=== PATIENT | female | born 1975 | race Caucasian/White ===

== ENCOUNTER → 2016-06-02 | Outpatient (CLI) | payer OTHER ==
--- NOTE | 2016-06-02 10:16 | US ---
EXAMINATION TYPE: US gallbladder DATE OF EXAM: 06/02/2016 9:20 AM COMPARISON: No previous CLINICAL HISTORY: Intermittent RUQ pain and nausea x 4 days, acid reflux. EXAM MEASUREMENTS: Liver Length: 15.9cm Gallbladder Wall: 0.2cm CBD: 0.2cm Right Kidney: 9.3 x 3.6 x 4.5cm TECHNOLOGIST IMPRESSION: Pancreas: wnl Liver: wnl Gallbladder: wnl Evidence for sonographic Feliz's sign: no CBD: wnl Right Kidney: wnl IMPRESSION: No gallstones or ultrasound evidence for acute cholecystitis. Normal Values: Liver Length: < 16cm wnl, 17-18cm upper limits, >18cm enlarged Renal Length = 9 - 12cm GB Wall: < 0.3cm CBD: < 0.6cm or < 1.0cm post cholecystectomy
== END | disposition home or self-care (01) ==
LOC: RADUSWWP 09:01
PROVIDERS: ATTEND Internal Medicine
DX: R10.11 Right upper quadrant pain (principal)
CPT/HCPCS: 76705

== ENCOUNTER → 2016-06-05 | Outpatient (CLI) | payer OTHER ==
--- NOTE | 2016-06-05 09:51 | NM ---
EXAMINATION TYPE: NM hepatobiliary w EF DATE OF EXAM: 06/05/2016 9:06 AM COMPARISON: Ultrasound gallbladder 02 June 2016 HISTORY: R10.11 right upper quadrant pain TECHNIQUE: After the intravenous administration of 5.4 mCi Tc 99m Mebrofenin hepatobiliary scintigrap hy is performed. Immediate images post injection. FINDINGS: There is satisfactory initial accumulation of tracer by the liver. The gallbladder is visualized wit hin 14 minutes. The small bowel activity is noted within 44 minutes. At one hour 8 ounces of oral e nsure plus is given to mimic CCK and gallbladder ejection fraction is calculated at 68 %, in the norm al range. Therefore there is no scintigraphic evidence of cystic or common bile duct obstruction to suggest acute cholecystitis or gallbladder dyskinesia. Patient experienced nausea with the Ensure adm inistration. IMPRESSION: Exam is within normal limits.
== END | disposition home or self-care (01) ==
LOC: RADNMMAIN 06:57
PROVIDERS: ATTEND Family Medicine
DX: R10.11 Right upper quadrant pain (principal)
CPT/HCPCS: 78226; A9537

== ENCOUNTER 2016-06-10 11:43 | Day surgery (SDC) | payer OTHER ==
[2016-06-08 12:14] VITALS: BMI 22.0
[~2016-06-10 11:43] MED LIST: LACTATED RINGERS 1,000 ML IV SCH; LIDOCAINE 1% 20 ML VIAL (10MG/ML) FOR IV START INTRADERMA PRN
[2016-06-10 12:01] VITALS: TEMP 98.2
[2016-06-10] MEDS ORDERED: LIDOCAINE 1% 20 ML VIAL (10MG/ML) FOR IV START INTRADERMA ONE (12:01)
[2016-06-10] MEDS ORDERED: LACTATED RINGERS 1,000 ML IV ONE (12:01)
[2016-06-10] MEDS ORDERED: PROPOFOL 10 MG/ML 20 ML VIAL IV ONE (12:16)
[2016-06-10] MEDS ORDERED: MIDAZOLAM 2 MG/2 ML VIAL ONE (12:16)
[2016-06-10] MEDS ORDERED: LIDOCAINE 1% INJ 10MG/ML (20 ML MDV) ONE (12:16)
--- NOTE | 2016-06-10 12:37 | P.PCN ---
Date of Procedure: 06/10/16 Procedure(s) Performed: Brief history: Patient is a pleasant 41-year-old white female, scheduled for an elective upper endoscopy as well as colonoscopy as a part of evaluation of ascending history of gastroesophageal reflux symptoms and intermittent right-sided abdominal pain for the last few months duration. Procedure performed: Esophagogastroduodenoscopy with biopsy Colonoscopy Preoperative diagnosis: Good Right-sided abdominal pain Anesthesia: MAC Procedure: After informed consent was obtained from the patient was brought into the endoscopy unit and IV conscious sedation was administered by anesthesia under continuous monitoring. Initially upper endoscopy was done. The Olympus GF 160 video endoscope was inserted inserted into the mouth and esophagus intubated without any difficulty and was gradually advanced into the stomach and duodenum and carefully examined. The bulb and second part of the duodenum appeared normal. The scope was then withdrawn into the stomach adequately insufflated with air and upon careful examination the antrum had mild gastritis and biopsies were done from this area. The body, cardia and fundus appeared normal. The scope was then withdrawn into the esophagus. Small hiatal hernia noted. The GE junction was located at 36 cm to the incisors. It appeared regular with no erythema erosions or ulcerations. Rest of the esophagus appeared normal. Patient tolerated the procedure well. At this time the patient continued to remain sedation. Initial digital rectal examination was normal. Olympus CF 160 video colonoscope was then inserted into the rectum and gradually advanced to the cecum without any difficulty. Careful examination was performed as the scope was gradually being withdrawn. The prep was excellent. terminal ileum was intubated and 20 cm visualized and appeared normal. The cecum, ascending colon, transverse colon, descending colon, sigmoid colon and rectum appeared normal. Retroflexion was performed in the rectum and no lesions were noted. Patient tolerated the procedure well. Impression: 1.Upper endoscopy revealed mild antral gastritis and small hiatal hernia but no evidence of esophagitis or Coyne's esophagus. 2.Colonoscopy revealed normal-appearing colon from rectum to cecum as well as terminal ileum with no evidence of colitis or colorectal neoplasia Recommendations: Findings of this examination were discussed with the patient as well as her family. She was advised to follow with the biopsy results. She will continue with Protonix 40 mg daily and follow antireflux measures.
[2016-06-10 12:49] VITALS: RESP 16
[2016-06-10 13:28] VITALS: BP 124/87; PULSE 76
== END 2016-06-10 13:33 | disposition home or self-care (01) ==
LOC: ORWHC2ENDO 11:43
PROVIDERS: ATTEND Internal Medicine Gastroenterology
DX: K20.0 Eosinophilic esophagitis (principal); K21.0 Gastro-esophageal reflux disease with esophagitis; K44.9 Diaphragmatic hernia without obstruction or gangrene; R10.9 Unspecified abdominal pain; Z79.02 Long term (current) use of antithrombotics/antiplatelets; Z79.899 Other long term (current) drug therapy
CPT/HCPCS: 81025; 88305; 88342; 45378; 43239; J2250; J2001; J2704; 99153

== ENCOUNTER → 2016-10-21 | Outpatient (CLI) | payer OTHER ==
[2016-10-26 20:37] LABS: Beef IgG 25.3 mcg/mL (< 2.0); Chicken Meat IgG 10.1 mcg/mL (< 2.0); Corn IgG 14.4 mcg/mL (< 2.0); Peanut IgG 15.9 mcg/mL (< 2.0); Pork IgG 10.3 mcg/mL (< 2.0); Potato IgG 9.6 mcg/mL (< 2.0); Soybean IgG 8.7 mcg/mL (< 2.0); Tomato IgG 17.1 mcg/mL (< 2.0)
== END | disposition home or self-care (01) ==
LOC: LABWHC1 11:58
PROVIDERS: ATTEND Otolaryngology
DX: J30.89 Other allergic rhinitis (principal)
CPT/HCPCS: 36415; 86001

== ENCOUNTER → 2016-11-11 | Outpatient (CLI) | payer OTHER ==
[2016-11-12 10:24] LABS: Mis test requested (Blood) Bean Sprouts IgG
[2016-11-12 13:29] LABS: Hazelnut IgE <0.35 kU/L (<0.35); Hazelnut IgE Class CLASS 0
[2016-11-12 13:30] LABS: Kiwi IgE <0.35 kU/L (<0.35); Kiwi IgE Class CLASS 0
[2016-11-12 13:31] LABS: Avocado Class CLASS 0
[2016-11-12 13:32] LABS: Banana IgE Class CLASS 0
[2016-11-13 16:14] LABS: Tea IgG 2.9 mcg/mL (<2.0)
[2016-11-16 13:52] LABS: Banana IgG 17.6 mcg/mL (< 2.0); Celery IgG 8.5 mcg/mL (< 2.0); Chocolate IgG 17.9 mcg/mL (< 2.0); Crab IgG 9.1 mcg/mL (< 2.0); Orange IgG 7.5 mcg/mL (< 2.0)
[2016-11-16 13:53] LABS: Coffee IgG 10.5 mcg/mL (< 2.0); Oat IgG 25.9 mcg/mL (< 2.0); Rice IgG 23.8 mcg/mL (< 2.0); Walnut IgG 8.8 mcg/mL (< 2.0)
[2016-11-18 14:19] LABS: Mis test requested (Blood) Lobster IgG
[2016-11-18 14:30] LABS: Mis test requested (Blood) Onion IgG
[2016-11-18 14:33] LABS: Mis test requested (Blood) Strawberry IgG
[2016-11-18 14:36] LABS: Mis test requested (Blood) Lettuce IgG
[2016-11-18 14:38] LABS: Mis test requested (Blood) Shrimp IgG
[2016-11-18 14:40] LABS: Mis test requested (Blood) Salmon IgG
== END ==
LOC: LABWHC1 11:50
PROVIDERS: ATTEND Otolaryngology
DX: J30.89 Other allergic rhinitis (principal)
CPT/HCPCS: 36415; 86001; 86003

== ENCOUNTER → 2016-12-15 | Outpatient (CLI) | payer OTHER ==
--- NOTE | 2016-12-16 07:46 | MM ---
Reason for exam: screening (asymptomatic). Last mammogram was performed 1 year and 4 months ago. History: Patient had first child at age 33. Physical Findings: A clinical breast exam by your physician is recommended on an annual basis and results should be correlated with mammographic findings. MG Screening Mammo w CAD Bilateral CC and MLO view(s) were taken. Prior study comparison: August 06, 2015, left breast MG work up mamm w CAD LT. August 01, 2015, bilateral MG screening mammo w CAD. The breast tissue is heterogeneously dense. This may lower the sensitivity of mammography. No significant changes when compared with prior studies. ASSESSMENT: Benign, BI-RAD 2 RECOMMENDATION: Routine screening mammogram of both breasts in 1 year.
== END | disposition home or self-care (01) ==
LOC: RADMAMWWP 11:12
PROVIDERS: ATTEND Family Medicine
DX: Z12.31 Encounter for screening mammogram for malignant neoplasm of breast (principal)

== ENCOUNTER → 2018-05-12 | Outpatient (CLI) | payer OTHER ==
--- NOTE | 2018-05-13 11:17 | MM ---
Reason for exam: screening (asymptomatic). Last mammogram was performed 1 year and 5 months ago. History: Patient had first child at age 33. Physical Findings: A clinical breast exam by your physician is recommended on an annual basis and results should be correlated with mammographic findings. MG Screening Mammo w CAD Bilateral CC and MLO view(s) were taken. Prior study comparison: December 15, 2016, bilateral MG screening mammo w CAD. August 06, 2015, left breast MG work up mamm w CAD LT. The breast tissue is heterogeneously dense. This may lower the sensitivity of mammography. There is no discrete abnormality. No significant changes when compared with prior studies. ASSESSMENT: Negative, BI-RAD 1 RECOMMENDATION: Routine screening mammogram of both breasts in 1 year.
== END | disposition home or self-care (01) ==
LOC: RADMAMWWP 11:05
PROVIDERS: ATTEND Family Medicine
DX: Z12.31 Encounter for screening mammogram for malignant neoplasm of breast (principal)
CPT/HCPCS: 77067

== ENCOUNTER → 2020-01-24 | Outpatient (CLI) | payer OTHER ==
[2020-01-24 15:22] LABS: HCT 42.9 % (34.0-46.0); HGB 13.7 gm/dL (11.4-16.0); MCHC 31.9 g/dL (31.0-37.0); MCV 90.9 fL (80.0-100.0); Mean Platelet Volume 8.8; Platelet Count 193 k/uL (150-450); RBC 4.72 m/uL (3.80-5.40); RDW 12.6 % (11.5-15.5); WBC 6.4 k/uL (3.8-10.6)
[2020-01-24 19:17] LABS: Thyroid Peroxidase Antibodies 40.1 U/mL (0.0-60.0)
[2020-01-24 20:22] LABS: African American GFR (CKD) 103.9 (60.0-200.0); Albumin 4.2 g/dL (3.80-4.90); Albumin/Globulin Ratio 1.68 (1.60-3.17); Anion Gap 8.6 mmol/L (4.00-12.00); BUN/Creat Ratio 13.75 Ratio (12.00-20.00); Calcium 9.2 mg/dL (8.7-10.3); Carbon Dioxide 24.4 mmol/L (21.6-31.8); Globulin 2.5 g/dL (1.6-3.3); Non-African American GFR(CKD) 89.7 (60.0-200.0); Total Bilirubin 0.3 mg/dL (0.3-1.2); Total Protein 6.7 g/dL (6.2-8.2)
[2020-01-24 20:30] LABS: Prolactin 10.5 ng/mL (2.8-29.2)
[2020-01-24 20:31] LABS: Follicle Stimulating Hormone 11.7 mIU/mL; T4, Free (Free Thyroxine) 0.9 ng/dL (0.80-1.80)
[2020-01-24 22:26] LABS: ACTH 59.1 pg/mL (0.00-45.99)
== END | disposition home or self-care (01) ==
LOC: LABWHC1 12:29
PROVIDERS: ATTEND Internal Medicine Endocrinology, Diabetes & Metabolism
DX: R53.83 Other fatigue (principal)
CPT/HCPCS: 36415; 80053; 82024; 82533; 82607; 83001; 84146; 84439; 84443; 84481; 85027; 86376

== ENCOUNTER → 2020-02-07 | Outpatient (CLI) | payer OTHER ==
[~2020-02-07] MED LIST changes: +COSYNTROPIN 0.25 MG VIAL IVP ONE; -LACTATED RINGERS 1,000 ML IV SCH; -LIDOCAINE 1% 20 ML VIAL (10MG/ML) FOR IV START INTRADERMA PRN; +SODIUM CHLORIDE 0.9% 500 ML 500 ML in EMPTY BAG 1 BAG IV PRN
[2020-02-07 09:08] VITALS: BP 135/91; PULSE 92; RESP 16; TEMP 98.4
== END | disposition home or self-care (01) ==
LOC: PROCWHC3 08:47
PROVIDERS: ATTEND Internal Medicine Endocrinology, Diabetes & Metabolism
DX: R53.83 Other fatigue (principal)
CPT/HCPCS: 82533; 82024; 96374; J0834

== ENCOUNTER → 2020-02-28 | Outpatient (CLI) | payer OTHER ==
--- NOTE | 2020-02-29 08:22 | MM ---
Reason for exam: screening (asymptomatic). Last mammogram was performed 1 year and 10 months ago. History: Patient had first child at age 33. Taking other hormone. Physical Findings: A clinical breast exam by your physician is recommended on an annual basis and results should be correlated with mammographic findings. MG 3D Screening Mammo W/Cad Bilateral CC, MLO, and XCCL view(s) were taken. Prior study comparison: May 12, 2018, bilateral MG screening mammo w CAD. December 15, 2016, bilateral MG screening mammo w CAD. The breast tissue is heterogeneously dense. This may lower the sensitivity of mammography. There is no discrete abnormality. ASSESSMENT: Negative, BI-RAD 1 RECOMMENDATION: Routine screening mammogram of both breasts in 1 year.
== END | disposition home or self-care (01) ==
LOC: RADMAMWWP 09:17
PROVIDERS: ATTEND Family Medicine
DX: Z12.31 Encounter for screening mammogram for malignant neoplasm of breast (principal)
CPT/HCPCS: 77063; 77067

== ENCOUNTER → 2020-04-22 | Outpatient (CLI) | payer OTHER | END | disposition home or self-care (01) | LOC: LABWHC1 08:08 | PROVIDERS: ATTEND Internal Medicine Endocrinology, Diabetes & Metabolism | DX: E27.1 Primary adrenocortical insufficiency (principal) | CPT/HCPCS: 36415; 82024; 82533 ==

== ENCOUNTER → 2020-05-16 | Outpatient (CLI) | payer OTHER ==
[2020-05-16 15:15] LABS: C Reactive Protein, High Sens 0.77 mg/L (0.000-3.000)
[2020-05-16 15:45] LABS: Anti-Smith Ab Interp NEGATIVE (NEGATIVE); Cyclic Citrull Pep IgG Unit <0.5 U/mL; Cyclic Citrullinated Pep IgG NEGATIVE (NEGATIVE); DNA Double-Stranded NEGATIVE (NEGATIVE)
[2020-05-16 15:48] LABS: Hepatitis B Core IgM Non-Reactive (Non-Reactive); Hepatitis B Surface AB- Quant 3.5 mIU/mL; Hepatitis B Surface Antibody Non-Reactive (Non-Reactive); Hepatitis B Surface Antigen Non-Reactive (Non-Reactive); Hepatitis C IgG Antibody Non-Reactive (Non-Reactive)
== END | disposition home or self-care (01) ==
LOC: LABWHC1 07:49
PROVIDERS: ATTEND Internal Medicine Rheumatology
DX: M19.90 Unspecified osteoarthritis, unspecified site (principal)
CPT/HCPCS: 36415; 82550; 82784; 85652; 86141; 86160; 86200; 86225; 86235; 86480; 86704; 86705; 86706; 86803; 86812; 87340

== ENCOUNTER → 2020-07-22 | Outpatient (CLI) | payer OTHER | END | disposition home or self-care (01) | LOC: LABWHC1 10:29 | PROVIDERS: ATTEND Internal Medicine Endocrinology, Diabetes & Metabolism | DX: E27.1 Primary adrenocortical insufficiency (principal) | CPT/HCPCS: 36415; 82024; 82533 ==

== ENCOUNTER → 2020-08-06 | Outpatient (CLI) | payer OTHER ==
[2020-08-06 16:16] LABS: Basophils % (A) 0 %; Eosinophils # (A) 0.2 k/uL (0-0.7); Eosinophils % (A) 4 %; HCT 41.9 % (34.0-46.0); HGB 13.9 gm/dL (11.4-16.0); Lymphocytes # (A) 1.4 k/uL (1.0-4.8); Lymphocytes % (A) 23 %; MCHC 33.3 g/dL (31.0-37.0); MCV 90.1 fL (80.0-100.0); Mean Platelet Volume 9.2; Monocytes # (A) 0.2 k/uL (0-1.0); Monocytes % (A) 3 %; Neutrophils # (A) 4.2 k/uL (1.3-7.7); Neutrophils % (A) 69 %; Platelet Count 191 k/uL (150-450); RBC 4.65 m/uL (3.80-5.40); RDW 12.8 % (11.5-15.5); WBC 6.1 k/uL (3.8-10.6)
[2020-08-06 16:43] LABS: ALT 12 U/L (4-34); AST 27 U/L (14-36); African American GFR (CKD) >90 (>60 ml/min/1.73 sqM); Albumin 4.7 g/dL (3.5-5.0); Albumin/Globulin Ratio 1.5; Alkaline Phosphatase 67 U/L (38-126); Anion Gap 5 mmol/L; Blood Urea Nitrogen 12 mg/dL (7-17); Calcium 9.6 mg/dL (8.4-10.2); Carbon Dioxide 28 mmol/L (22-30); Chloride 102 mmol/L (98-107); Globulin 3.1 g/dL; Glucose 82 mg/dL (74-99); Non-African American GFR(CKD) >90 (>60 ml/min/1.73 sqM); Potassium 4.2 mmol/L (3.5-5.1); Sodium 135 mmol/L (137-145); Total Bilirubin 0.6 mg/dL (0.2-1.3); Total Protein 7.8 g/dL (6.3-8.2)
== END | disposition home or self-care (01) ==
LOC: LABWHC1 15:54
PROVIDERS: ATTEND Nurse Practitioner Adult Health
DX: R07.9 Chest pain, unspecified (principal)
CPT/HCPCS: 36415; 80053; 84484; 85025; 85379

== ENCOUNTER 2020-08-07 15:52 | Inpatient (IN) | payer OTHER ==
[2020-08-07] MEDS ORDERED: LIDOCAINE 1% INJ 10MG/ML (20 ML MDV) SQ ONE (15:58)
[2020-08-07] MEDS ORDERED: SODIUM CHLORIDE 0.9% 500 ML 500 ML IV ONE (16:12)
--- NOTE | 2020-08-07 16:24 | ED ---
General Adult HPI - General Chief complaint: Shortness of Breath Stated complaint: Air in lungs Time Seen by Provider: 08/07/20 15:56 Source: patient, RN notes reviewed, old records reviewed Mode of arrival: ambulatory Limitations: no limitations - History of Present Illness Initial comments: 45-year-old female for evaluation of right-sided chest pain and dyspnea. Patient had been contacted by her primary care physician with an abnormal outpatient x-ray and concern for pneumothorax. Patient had been sent for outpatient CT which confirmed a pneumothorax. She was sent to the emergency department for evaluation and treatment. Patient states her symptoms have been present for approximate 5 days including dyspnea which is worse while lying on the right, and right-sided chest pain. She is otherwise healthy. She had a minor trauma but no chest trauma in recent history. No fever or chills. No cough. Patient is otherwise quite healthy. Nonsmoker. - Related Data Home Medications Medication Instructions Recorded Confirmed Allergy Shots Unk 1 applic IM Q14D 06/08/16 06/08/16 Cetirizine HCl [Zyrtec] 10 mg PO DAILY 06/08/16 02/07/20 Famotidine 40 mg PO BID 06/08/16 02/07/20 Pantoprazole [Protonix] 40 mg PO QAM 06/08/16 02/07/20 Allergies Allergy/AdvReac Type Severity Reaction Status Date / Time Beef Containing Products Allergy Intermediate Sinus Verified 08/07/20 16:02 [Beef] problems egg Allergy Intermediate Phlegm Verified 08/07/20 16:02 production, sinus problems milk Allergy Intermediate Phlegm Verified 08/07/20 16:02 production, sinus problems Review of Systems ROS Statement: Those systems with pertinent positive or pertinent negative responses have been documented in the HPI. ROS Other: All systems not noted in ROS Statement are negative. Past Medical History Additional Past Medical History / Comment(s): pneumothorax 07/2020, hypoglycemia, History of Any Multi-Drug Resistant Organisms: None Reported Additional Past Surgical History / Comment(s): sinus, Past Psychological History: No Psychological Hx Reported Smoking Status: Never smoker Past Alcohol Use History: None Reported Past Drug Use History: None Reported General Exam Limitations: no limitations General appearance: alert, in no apparent distress Head exam: Present: atraumatic, normocephalic Eye exam: Present: normal appearance, PERRL ENT exam: Present: normal exam Neck exam: Present: normal inspection, full ROM. Absent: tenderness, meningismus Respiratory exam: Present: decreased breath sounds (On the right). Absent: respiratory distress Cardiovascular Exam: Present: regular rate, normal rhythm GI/Abdominal exam: Present: soft. Absent: distended, tenderness Extremities exam: Present: normal inspection, normal capillary refill. Absent: pedal edema Neurological exam: Present: alert, oriented X3, CN II-XII intact. Absent: motor sensory deficit Psychiatric exam: Present: anxious Skin exam: Present: warm, dry, intact. Absent: cyanosis, diaphoretic Course Vital Signs 08/07/20 08/07/20 08/07/20 15:58 16:22 16:48 Temperature 98.0 F Pulse Rate 74 70 72 Respiratory 18 18 18 Rate Blood Pressure 158/97 160/104 138/90 O2 Sat by Pulse 100 100 100 Oximetry 08/07/20 08/07/20 08/07/20 17:04 17:09 17:26 Temperature Pulse Rate 70 80 70 Respiratory 18 14 16 Rate Blood Pressure 170/114 118/99 138/88 O2 Sat by Pulse 100 100 Oximetry 08/07/20 18:04 Temperature Pulse Rate 90 Respiratory 18 Rate Blood Pressure 124/101 O2 Sat by Pulse 100 Oximetry - Reevaluation(s) Reevaluation #1: 08/07/20 16:30 I did discuss case with Dr. Paradise chau for pulmonology, will evaluate the patient in consultation. EKG Findings - EKG Comments: EKG Findings:: EKG: Sinus rhythm rate of 71 CT interval 158, QRS duration 78, QTC 395, no ST segment elevation Procedures - Chest Tube Insertion Consent Obtained: written consent Side of Procedure: right Indication: Pneumothorax Placed on monitor/pulse oximetry: Yes Site Prep: Chloroprep Local Anesthesia: Lidocaine 1% Amount (mLs): 5 Insertion Site: Other (Mid clavicular, second intercostal space) Scalpel: #11 Open into Pleural Space Using: Trocar Tube Size (Cymro): Other (11) Returns: Air Sutured in Place: No (Self-adhesive dressing, thoravent) Attached to Suction: Yes Type of Suction: Pleuravac Repeat X-ray Results: Lung Inflated Patient Tolerated Procedure: well Medical Decision Making - Medical Decision Making 45-year-old female with spontaneous right-sided pneumothorax between 40 and 50% with radiographic evidence of right to left shift. Patient is hemodynamically stable. I discussed case with pulmonology, Dr. Ghotra. For event is placed in the emergency department. Patient tolerates procedure well. Repeat chest x-ray shows trace pneumothorax with no other acute findings. Patient will be admitted, repeat chest x-ray will be obtained tomorrow morning. Case discussed with Dr. Nunez who will admit with pulmonology on consult. - Lab Data Result diagrams: 08/07/20 16:19 08/07/20 16:19 Lab Results 08/07/20 08/07/20 08/07/20 Range/Units 16:19 16:19 16:19 WBC 5.7 (3.8-10.6) k/uL RBC 4.89 (3.80-5.40) m/uL Hgb 15.0 (11.4-16.0) gm/dL Hct 44.1 (34.0-46.0) % MCV 90.2 (80.0-100.0) fL MCH 30.6 (25.0-35.0) pg MCHC 33.9 (31.0-37.0) g/dL RDW 12.8 (11.5-15.5) % Plt Count 210 (150-450) k/uL MPV 10.0 Neutrophils % 62 % Lymphocytes % 27 % Monocytes % 4 % Eosinophils % 5 % Basophils % 1 % Neutrophils # 3.5 (1.3-7.7) k/uL Lymphocytes # 1.6 (1.0-4.8) k/uL Monocytes # 0.2 (0-1.0) k/uL Eosinophils # 0.3 (0-0.7) k/uL Basophils # 0.0 (0-0.2) k/uL PT 9.9 (9.0-12.0) sec INR 0.9 (<1.2) APTT 23.9 (22.0-30.0) sec Sodium 139 (137-145) mmol/L Potassium 4.1 (3.5-5.1) mmol/L Chloride 102 (98-107) mmol/L Carbon Dioxide 27 (22-30) mmol/L Anion Gap 10 mmol/L BUN 15 (7-17) mg/dL Creatinine 0.70 (0.52-1.04) mg/dL Est GFR (CKD-EPI)AfAm >90 (>60 ml/min/1.73 sqM) Est GFR (CKD-EPI)NonAf >90 (>60 ml/min/1.73 sqM) Glucose 85 (74-99) mg/dL Calcium 9.4 (8.4-10.2) mg/dL Total Bilirubin 0.3 (0.2-1.3) mg/dL AST 28 (14-36) U/L ALT 13 (4-34) U/L Alkaline Phosphatase 70 (38-126) U/L Total Protein 8.2 (6.3-8.2) g/dL Albumin 4.9 (3.5-5.0) g/dL Critical Care Time Critical Care Time: Yes Total Critical Care Time: 35 Disposition Clinical Impression: Spontaneous pneumothorax Disposition: ADMITTED IP TO THIS [facility] Condition: Stable Is patient prescribed a controlled substance at d/c from ED?: No Referrals: Bryon Ye MD [Primary Care Provider] - 1-2 days Decision to Admit Reason: Admit from EC Decision Date: 08/07/20 Decision Time: 17:34
[2020-08-07] MEDS ORDERED: LORazepam 2 MG/ML INJ IV STA (16:28)
[2020-08-07 16:31] LABS: Basophils % (A) 1 %; Eosinophils # (A) 0.3 k/uL (0-0.7); Eosinophils % (A) 5 %; HCT 44.1 % (34.0-46.0); Lymphocytes # (A) 1.6 k/uL (1.0-4.8); Lymphocytes % (A) 27 %; MCH 30.6 pg (25.0-35.0); MCHC 33.9 g/dL (31.0-37.0); MCV 90.2 fL (80.0-100.0); Monocytes # (A) 0.2 k/uL (0-1.0); Monocytes % (A) 4 %; Neutrophils # (A) 3.5 k/uL (1.3-7.7); Neutrophils % (A) 62 %; Platelet Count 210 k/uL (150-450); RBC 4.89 m/uL (3.80-5.40); RDW 12.8 % (11.5-15.5); WBC 5.7 k/uL (3.8-10.6)
[2020-08-07 16:40] LABS: ALT 13 U/L (4-34); AST 28 U/L (14-36); African American GFR (CKD) >90 (>60 ml/min/1.73 sqM); Albumin 4.9 g/dL (3.5-5.0); Alkaline Phosphatase 70 U/L (38-126); Anion Gap 10 mmol/L; Blood Urea Nitrogen 15 mg/dL (7-17); Calcium 9.4 mg/dL (8.4-10.2); Carbon Dioxide 27 mmol/L (22-30); Chloride 102 mmol/L (98-107); Glucose 85 mg/dL (74-99); Non-African American GFR(CKD) >90 (>60 ml/min/1.73 sqM); Potassium 4.1 mmol/L (3.5-5.1); Sodium 139 mmol/L (137-145); Total Bilirubin 0.3 mg/dL (0.2-1.3); Total Protein 8.2 g/dL (6.3-8.2)
[2020-08-07 16:41] LABS: INR 0.9 (<1.2); Partial Thromboplastin Time 23.9 sec (22.0-30.0); Prothrombin Time 9.9 sec (9.0-12.0)
[2020-08-07] MEDS ORDERED: HYDROmorphone 0.5 MG/0.5 ML SYRINGE IVP STA (16:54)
[2020-08-07] MEDS ORDERED: KETOROLAC 15 MG/ML 1 ML VIAL IVP STA (17:01)
[2020-08-07] MEDS ORDERED: KETOROLAC 15 MG/ML 1 ML VIAL ONE (17:02)
--- NOTE | 2020-08-07 17:56 | XR ---
EXAMINATION TYPE: XR chest 1V portable DATE OF EXAM: 08/07/2020 COMPARISON: Chest CT scan today HISTORY: Chest tube TECHNIQUE: Single view FINDINGS: There is chest tube over the right upper lobe anteriorly. I see no definite pneumothorax. T rachea is midline. Heart and mediastinum are normal. There are chest leads. There is no pleural effus ion. There are no hilar masses. IMPRESSION: No cardiopulmonary disease. There is apparent clearing of the small right pneumothorax co mpared to CT scan 2 hours ago.
[2020-08-07 18:05] VITALS: RESP 18
[2020-08-07] MEDS ORDERED: KETOROLAC 15 MG/ML 1 ML VIAL IVP PRN (18:12)
[2020-08-07] MEDS ORDERED: HYDROmorphone 0.5 MG/0.5 ML SYRINGE IVP PRN (18:12)
[2020-08-07] MEDS ORDERED: NALOXONE 0.4 MG/ML 1 ML VIAL IV PRN (18:12)
[2020-08-07] MEDS: SODIUM CHLORIDE 0.9% 1,000 ML IV SCH (18:37)
--- NOTE | 2020-08-08 08:29 | XR ---
EXAMINATION TYPE: XR chest 2V DATE OF EXAM: 08/08/2020 COMPARISON: 08/07/2020 TECHNIQUE: PA and lateral views submitted. HISTORY: Follow-up pneumothorax FINDINGS: Chest catheter noted. Persistent less than 5% right apical tiny pneumothorax. No mediastinal deviatio n. Left lung clear. No pleural effusion. No interstitial edema. IMPRESSION: 1. Less than 5% right apical pneumothorax
[2020-08-08] MEDS ORDERED: PANTOPRAZOLE 40 MG TABLET PO PRN (10:22)
[2020-08-08] MEDS: ACETAMINOPHEN TAB 325 MG TAB PO PRN ×2 (12:48→19:55)
--- NOTE | 2020-08-08 14:40 | P.CNPUL ---
History of Present Illness Consult date: 08/08/20 Requesting physician: Markell Nunez Reason for consult: dyspnea, chest pain, pneumothorax, abnormal CXR/CT Chief complaint: Chest pain and shortness of breath. History of present illness: 45-year-old female, who presents to the emergency department, on August 07, with complaints of right-sided chest pain and shortness of breath. She apparently was contacted by her primary care physician with an abnormal outpatient x-ray, with concerns for pneumothorax on the right side. Computed tomography scan did reveal a substantial pneumothorax on the right side, and ER physician placed a Thora-vent. The patient is currently inpatient. She is feeling better other than for some pain at the site of the catheter. The patient has no prior history of pneumothorax. She denies any trauma. She started noticing pulmonary complaints over the previous weekend. By Wednesday, her symptoms had progressed, and she thought she should get checked out. She saw her primary care provider, who ordered blood work and a chest x-ray. She apparently was called and told to come to the emergency room for a computed tomography scan. I did speak to the ER physician yesterday. Currently, she is resting comfortably. She is not on any nasal O2. The patient still has a small right apical pneumothorax. I told her we would get a chest x-ray in the morning, and likely remove the Thora-vent. Her primary care providers Dr. Ye. She states her only major medical problems are acid reflux disease, and hypoglycemia. Review of Systems REVIEW OF SYSTEMS: CONSTITUTIONAL: [Negative.] NEUROLOGIC: [ Negative.] HEENT: [ Negative.] CARDIAC: [Negative.] PULMONARY: Shortness of breath, cough, and right-sided chest pain. GI: [Negative.] : [Negative.] RHEUMATOLOGIC: [ Negative.] IMMUNOLOGIC: [ Negative.] ENDOCRINE: [Negative. ] DERMATOLOGIC: [Negative.] Past Medical History Additional Past Medical History / Comment(s): pneumothorax 07/2020, hypoglycemia History of Any Multi-Drug Resistant Organisms: None Reported Additional Past Surgical History / Comment(s): sinus surgery Past Anesthesia/Blood Transfusion Reactions: No Reported Reaction Past Psychological History: No Psychological Hx Reported Smoking Status: Never smoker Past Alcohol Use History: None Reported Past Drug Use History: None Reported - Past Family History Father Family Medical History: Hypertension Additional Family Medical History / Comment(s): prostate cancer Medications and Allergies Home Medications Medication Instructions Recorded Confirmed Type Cetirizine HCl [Zyrtec] 10 mg PO HS 06/08/16 08/07/20 History Pantoprazole [Protonix] 40 mg PO DAILY PRN 06/08/16 08/07/20 History Vortioxetine Hydrobromide 10 mg PO HS 08/07/20 08/07/20 History [Trintellix] Allergies Allergy/AdvReac Type Severity Reaction Status Date / Time Beef Containing Products Allergy Intermediate Sinus Verified 08/07/20 18:18 [Beef] problems egg Allergy Intermediate Phlegm Verified 08/07/20 18:18 production, sinus problems milk Allergy Intermediate Phlegm Verified 08/07/20 18:18 production, sinus problems Physical Exam Osteopathic Statement: *. No significant issues noted on an osteopathic structural exam other than those noted in the History and Physical/Consult. Vitals: Vital Signs Temp Pulse Pulse Resp BP BP Pulse Ox 08/08/20 11:26 80 18 145/86 98 08/08/20 08:06 97.6 F 78 18 125/94 98 08/08/20 04:00 98.1 F 71 18 132/87 97 08/08/20 02:00 18 08/08/20 00:00 98.0 F 60 18 126/79 99 08/07/20 19:02 71 18 145/95 100 08/07/20 18:04 90 18 124/101 100 08/07/20 17:26 70 16 138/88 100 08/07/20 17:09 80 14 118/99 08/07/20 17:04 70 18 170/114 100 08/07/20 16:48 72 18 138/90 100 08/07/20 16:22 70 18 160/104 100 08/07/20 15:58 98.0 F 74 18 158/97 100 Intake and Output 08/07/20 08/08/20 08/08/20 22:59 06:59 14:59 Intake Total 20 250 Balance 20 250 Intake: IV 20 10 Invasive Line 1 20 10 Oral 240 Other: Voiding Method Toilet # Voids 1 2 # Bowel Movements 2 Weight 58.967 kg 59.6 kg No acute distress, oriented 3. No supplemental oxygen. HEENT examination is grossly unremarkable. Mucous membranes are moist. No oral lesions. Neck supple. Full range of motion. No adenopathy thyromegaly or neck vein distention. Cardiovascular examination reveals regular rhythm rate. S1-S2 normal. No S3 or S4. No discernible murmur noted. Lungs reveal clear breath sounds. Her sounds are equal bilaterally. No adventitious lung sounds including wheezes rhonchi or crackles. Right sided Thora-vent is noted. Abdomen soft bowel sounds are heard. No masses or tenderness. Extremities are intact. No cyanosis clubbing or edema. Skin is without rash or lesion. Neurologic examination is brief but nonfocal. Results - Laboratory Findings CBC and BMP: 08/07/20 16:19 08/07/20 16:19 PT/INR, D-dimer PT 9.9 sec (9.0-12.0) 08/07/20 16: INR 0.9 (<1.2) 08/07/20 16:19 - Diagnostic Findings Chest x-ray: image reviewed CT scan - chest: image reviewed Assessment and Plan Assessment: Idiopathic, right-sided, spontaneous pneumothorax, status post Thora-vent insertion. History of acid reflux disease. History of hypoglycemia. Lifelong nontobacco user. Plan: Plan dated 08/08/2020. The patient will stay overnight. She'll have a repeat chest x-ray in the morning. Likely, the Thora-vent will be removed. She was planning a trip to [place] in the near future, I believe next week. It would probably not be [place] for her to fly. I mentioned that to her today. I would like to see her in the office next week, and do a chest x-ray. Additional recommendations and suggestions are forthcoming. I did explain to her that she could have recurrent pneumothorax either in the same lung, or the episode side. She may have congenital cyst disease or apical bullous disease. Additional recommendations a nd suggestions are forthcoming. Time with Patient: Greater than 30
[2020-08-08] MEDS: SODIUM CHLORIDE 0.9% 1,000 ML IV SCH (18:12)
[2020-08-08] MEDS ORDERED: LORATADINE 10 MG TAB PO SCH (21:00)
[2020-08-08] MEDS ORDERED: VORTIOXETINE HYDROBROMIDE 10 MG TABLET PO SCH (21:00)
--- NOTE | 2020-08-08 22:41 | P.HPIM ---
History of Present Illness H&P Date: 08/08/20 Chief Complaint: Short of breath History of presenting complaint: This is a pleasant 45-year-old patient of Dr. Bryon Ye. What 5 days ago she noticed some bright sided chest wall pain. She tried to shake it off." Couple of days she started becoming short of breath. Headache likely progress. Decided to come to her PCP. X-ray showed pneumothorax over she was sent out of the ER. Thora-vent was placed in the ER. Patient having some pain at the local site. Has not had this before. Is a nonsmoker. Nobody answered the family's had pneumothorax. Review of systems: GEN.: None EYES: None HEENT: None NECK: None RESPIRATORY: As above CARDIOVASCULAR: None GASTROINTESTINAL: None GENITOURINARY: None MUSCULOSKELETAL: None LYMPHATICS: None HEMATOLOGICAL: None PSYCHIATRY: None NEUROLOGICAL: None Past medical history to include: Hypoglycemia Social history: . No history of smoking or alcohol Physical examination: VITAL SIGNS: 98.1, 78, 18, 125/94, 98% room air GENERAL: BMI 25.7, laying in bed, comfortable. EYES: Pupils equal. Conjunctiva normal. HEENT: External appearance of nose and ears normal, oral cavity grossly normal. NECK: JVD not raised; masses not palpable. HEART: First and second heart sounds are normal; no edema. LUNGS: Respiratory rate normal; clear to auscultation. Thora-vent on the right chest wall ABDOMEN: Soft, nontender, liver spleen not palpable, no masses palpable. PSYCH: Alert and oriented x3; mood and affect normal. NEUROLOGICAL: Cranial nerves grossly intact; no facial asymmetry, power and sensation grossly intact. LYMPHATICS: No lymph nodes palpable in the axilla and neck INVESTIGATIONS, reviewed in the clinical context: WBC 5.7 hemoglobin 15 platelets 210 potassium 4.1 creatinine 0.7 Coronavirus [PCR]-not detected EKG tracing personally reviewed by me-was reviewed by me shows: Normal sinus rh hm Chest x-ray film personally reviewed by me-minimal right-sided pneumothorax. With the Thora-vent Assessment and plan: -First episode of spontaneous right-sided pneumothorax. No underlying pelvic condition. Nonsmoker. No family history. Currently is a Thora-vent in place. Pulmonary was consulted. Care was discussed with the patient. Questions answered. Had Lovenox for DVT prophylaxis Past Medical History Additional Past Medical History / Comment(s): pneumothorax 07/2020, hypoglycemia History of Any Multi-Drug Resistant Organisms: None Reported Additional Past Surgical History / Comment(s): sinus surgery Past Anesthesia/Blood Transfusion Reactions: No Reported Reaction Past Psychological History: No Psychological Hx Reported Smoking Status: Never smoker Past Alcohol Use History: None Reported Past Drug Use History: None Reported - Past Family History Father Family Medical History: Hypertension Additional Family Medical History / Comment(s): prostate cancer Medications and Allergies Home Medications Medication Instructions Recorded Confirmed Type Cetirizine HCl [Zyrtec] 10 mg PO HS 06/08/16 08/07/20 History Pantoprazole [Protonix] 40 mg PO DAILY PRN 06/08/16 08/07/20 History Vortioxetine Hydrobromide 10 mg PO HS 08/07/20 08/07/20 History [Trintellix] Allergies Allergy/AdvReac Type Severity Reaction Status Date / Time Beef Containing Products Allergy Intermediate Sinus Verified 08/07/20 18:18 [Beef] problems egg Allergy Intermediate Phlegm Verified 08/07/20 18:18 production, sinus problems milk Allergy Intermediate Phlegm Verified 08/07/20 18:18 production, sinus problems Physical Exam Vitals: Vital Signs Temp Pulse Pulse Resp BP BP Pulse Ox 08/08/20 08:06 97.6 F 78 18 125/94 98 08/08/20 04:00 98.1 F 71 18 132/87 97 08/08/20 02:00 18 08/08/20 00:00 98.0 F 60 18 126/79 99 08/07/20 19:02 71 18 145/95 100 08/07/20 18:04 90 18 124/101 100 08/07/20 17:26 70 16 138/88 100 08/07/20 17:09 80 14 118/99 08/07/20 17:04 70 18 170/114 100 08/07/20 16:48 72 18 138/90 100 08/07/20 16:22 70 18 160/104 100 08/07/20 15:58 98.0 F 74 18 158/97 100 Intake and Output 08/07/20 08/08/20 08/08/20 22:59 06:59 14:59 Intake Total 20 250 Balance 20 250 Intake: IV 20 10 Invasive Line 1 20 10 Oral 240 Other: Voiding Method Toilet # Voids 1 2 # Bowel Movements 2 Weight 58.967 kg 59.6 kg Results CBC & Chem 7: 08/07/20 16:19 08/07/20 16:19 Thrombosis Risk Factor Assmnt - Choose All That Apply Any of the Below Risk Factors Present?: Yes Each Factor Represents 1 point: Age 41-60 years Thrombosis Risk Factor Assessment Total Risk Factor Score: 1 Thrombosis Risk Factor Assessment Level: Low Risk
[2020-08-08] MEDS: ENOXAPARIN 40 MG/0.4 ML SYRINGE SQ SCH ×2 (23:54→23:57)
[2020-08-09] MEDS: SODIUM CHLORIDE 0.9% 1,000 ML IV SCH (08:12)
[2020-08-09] MEDS: ENOXAPARIN 40 MG/0.4 ML SYRINGE SQ SCH (08:19)
--- NOTE | 2020-08-09 11:13 | XR ---
EXAMINATION TYPE: XR chest 2V DATE OF EXAM: 08/09/2020 COMPARISON: 08/08/2020 TECHNIQUE: PA and lateral views submitted. HISTORY: Right pneumothorax FINDINGS: Heart size normal. Lungs are clear. No pleural effusion. Chest tube noted. There is a less than 5% ri ght apical pneumothorax similar to the prior exam. No interstitial edema. Osseous structures stable w ith slight curvature of the spine. IMPRESSION: 1. Stable less than 5% right apical pneumothorax.
[2020-08-09 11:40] VITALS: BP 137/94; PULSE 72; TEMP 97.8
[2020-08-09] MEDS: ACETAMINOPHEN TAB 325 MG TAB PO PRN (13:53)
--- NOTE | 2020-08-09 15:50 | XR ---
EXAMINATION TYPE: XR chest 2V DATE OF EXAM: 08/09/2020 COMPARISON: 08/10/2019 TECHNIQUE: PA and lateral views submitted. HISTORY: Post pneumothorax FINDINGS: The lungs are clear and there is no pneumothorax, pleural effusion, or focal pneumonia. Sharon has been removed. IMPRESSION: 1. No sizable pneumothorax..
--- NOTE | 2020-08-09 16:28 | P.PN ---
Subjective Progress Note Date: 08/09/20 Principal diagnosis: Spontaneous pneumothorax 45-year-old female, who presents to the emergency department, on August 07, with complaints of right-sided chest pain and shortness of breath. She apparently was contacted by her primary care physician with an abnormal outpatient x-ray, with concerns for pneumothorax on the right side. Computed tomography scan did reveal a substantial pneumothorax on the right side, and ER physician placed a Thora-vent. The patient is currently inpatient. She is feeling better other than for some pain at the site of the catheter. The patient has no prior history of pneumothorax. She denies any trauma. She started noticing pulmonary complaints over the previous weekend. By Wednesday, her symptoms had progressed, and she thought she should get checked out. She saw her primary care provider, who ordered blood work and a chest x-ray. She apparently was called and told to come to the emergency room for a computed tomography scan. I did speak to the ER physician yesterday. Currently, she is resting comfortably. She is not on any nasal O2. The patient still has a small right apical pneumothorax. I told her we would get a chest x-ray in the morning, and likely remove the Thora-vent. Her primary care providers Dr. Ye. She states her only major medical problems are acid reflux disease, and hypoglycemia. The patient is seen today 08/09/2020 in follow-up on the selective care unit. She is currently awake and alert in no acute distress. Up ambulating in her room. Right sided Thora-Vent remains in place. Follow-up chest x-ray shows trace pneumothorax. Denies any worsening shortness of breath, cough or congestion. She is quite anxious to go home. She is maintaining good O2 saturation in the 90s on room air. Objective - Vital Signs Vital signs: Vital Signs Temp 97.8 F 08/09/20 11:39 Pulse 72 08/09/20 11:39 Resp 18 08/09/20 14:00 BP 137/94 08/09/20 11:39 Pulse Ox 100 08/09/20 11:39 Intake & Output 08/08/20 08/09/20 08/09/20 18:59 06:59 18:59 Intake Total 460 10 125 Balance 460 10 125 Weight 59.9 kg Intake: IV 20 10 Invasive Line 1 20 10 Intake, IV Titration 200 Amount Sodium Chloride 0.9% 1, 200 000 ml @ 20 mls/hr IV . Q24H COUNTS INCLUDE 234 BEDS AT THE [facility] Rx#:[id number] Oral 240 125 Other: Voiding Method Toilet Toilet # Voids 3 1 # Bowel Movements 2 - Exam GENERAL EXAM: Alert, active, very pleasant 45-year-old female patient, on room air, comfortable in no apparent distress. HEAD: Normocephalic. EYES: Normal reaction of pupils, equal size. NOSE: Clear with pink turbinates. THROAT: No erythema or exudates. NECK: No masses, no JVD. CHEST: No chest wall deformity. Right sided Thora Vent in place LUNGS: Equal air entry with no crackles, wheeze, rhonchi or dullness. CVS: S1 and S2 normal with no audible murmur, regular rhythm. ABDOMEN: No hepatosplenomegaly, normal bowel sounds, no guarding or rigidity. SPINE: No scoliosis or deformity SKIN: No rashes CENTRAL NERVOUS SYSTEM: No focal deficits, tone is normal in all 4 extremities. EXTREMITIES: There is no peripheral edema. No clubbing, no cyanosis. Peripheral pulses are intact. - Labs CBC & Chem 7: 08/07/20 16:19 08/07/20 16:19 Assessment and Plan Assessment: 1 Idiopathic, right-sided, spontaneous pneumothorax, status post Thora-vent insertion. 2 History of acid reflux disease. 3 History of hypoglycemia. 4 Lifelong nonsmoker Plan: The patient was seen and evaluated by Dr. Ghotra Thora vent removed, follow-up chest x-ray reveals no significant pneumothorax Cleared for discharge from the pulmonary standpoint Follow-up early next week with Dr. Ghotra in the office Return to the emergency room if similar symptoms recur I, the cosigning physician, performed a history & physical examination of the patient. Lungs sounds are clear. Maintaining good O2 saturations in the 90s on room air. I discussed the assessment and plan of care with my nurse practitioner, Estefani Rose. I attest to the above note as dictated by her.
--- NOTE | 2020-08-09 21:22 | P.DS ---
Providers Date of admission: 08/07/20 18:12 Expected date of discharge: 08/09/20 Attending physician: Markell Nunez Consults: 08/07/20 18:12 Consult Physician Routine Consulting Provider: Estiven Ghotra Consult Reason/Comments: Pneumothorax Do you want consulting provider notified?: Already Contacted Primary care physician: Bryon Ye [facility] Course: Chief Complaint: Short of breath History of presenting complaint: This is a pleasant 45-year-old patient of Dr. Bryon Ye. 5 days ago she noticed some right sided chest pain. She tried to shake it off." Couple of days she started becoming short of breath. . Decided to come to her PCP. X- ray showed pneumothorax over she was sent out of the ER. Thora-vent was placed in the ER. Patient having some pain at the local site. Has not had this before. Is a nonsmoker. Nobody in the family's had pneumothorax. Repeat x-ray showed much improvement [id number] was removed. Repeat chest x-ray reviewed by pulmonary. Patient became for discharge. Patient had travel plans. They discussed with the patient the same. Consultation: Dr. Ghotra from pulmonary Past medical history to include: Hypoglycemia Social history: . No history of smoking or alcohol Physical examination: VITAL SIGNS: 97.8, 72, 18, 1 37 x 94, 100% on room air GENERAL: Sitting up comfortable EYES: Pupils equal. Conjunctiva normal. HEENT: External appearance of nose and ears normal, oral cavity grossly normal. NECK: JVD not raised; masses not palpable. HEART: First and second heart sounds are normal; no edema. LUNGS: Respiratory rate normal; clear to auscultation. Thora-vent on the right chest wall ABDOMEN: Soft, nontender, liver spleen not palpable, no masses palpable. PSYCH: Alert and oriented x3; mood and affect normal. INVESTIGATIONS, reviewed in the clinical context: WBC 5.7 hemoglobin 15 platelets 210 potassium 4.1 creatinine 0.7 Coronavirus [PCR]-not detected EKG tracing personally reviewed by me-was reviewed by me shows: Normal sinus rhythm Chest x-ray film personally reviewed by me-minimal right-sided pneumothorax. With the Thora-vent Assessment and plan: -First episode of spontaneous right-sided pneumothorax. No cotributing factors Thora-vent was placed. Removed the next day. Repeat check stat x-ray looking fine. We'll follow up with Dr. Ghotra in the office. Disposition: Home Patient Condition at Discharge: Stable Plan - Discharge Summary Discharge Rx Participant: No New Discharge Prescriptions: No Action Cetirizine HCl [Zyrtec] 10 mg PO HS Pantoprazole [Protonix] 40 mg PO DAILY PRN PRN Reason: Gi Upset Vortioxetine Hydrobromide [Trintellix] 10 mg PO HS Discharge Medication List Cetirizine HCl [Zyrtec] 10 mg PO HS 06/08/16 [History] Pantoprazole [Protonix] 40 mg PO DAILY PRN 06/08/16 [History] Vortioxetine Hydrobromide [Trintellix] 10 mg PO HS 08/07/20 [History] Follow up Appointment(s)/Referral(s): Bryon Ye MD [Primary Care Provider] - 08/13/20 1:15 pm Estiven Ghotra DO [Doctor of Osteopathic Medicine] - 08/14/20 8:45 am Patient Instructions/Handouts: Spontaneous Pneumothorax (DC) Discharge Disposition: HOME SELF-CARE
== END 2020-08-09 16:38 | disposition home or self-care (01) | DRG 201 ==
LOC: EC 15:52 → 3SCARD 18:12
PROVIDERS: ADMIT Hospitalist; ATTEND Hospitalist
PROC: 0W9930Z Drainage of Right Pleural Cavity with Drainage Device, Percutaneous Approach (ICD-10-PCS; principal; 2020-08-07)
DX: J93.83 Other pneumothorax (principal); K21.9 Gastro-esophageal reflux disease without esophagitis; Z20.822 Contact with and (suspected) exposure to COVID-19; Z79.899 Other long term (current) drug therapy; Z91.012 Allergy to eggs; Z91.011 Allergy to milk products; Z91.018 Allergy to other foods; Z82.49 Family history of ischemic heart disease and other diseases of the circulatory system; Z80.42 Family history of malignant neoplasm of prostate
CPT/HCPCS: 32551; 36415; 71045; 71046; 80053; 85025; 85610; 85730; 87635; 93005; 96361; 96372; 96374; 96375; 99285; 99291

== ENCOUNTER → 2020-08-07 | Outpatient (CLI) | payer OTHER ==
--- NOTE | 2020-08-07 15:47 | CT ---
EXAMINATION TYPE: CT chest wo con DATE OF EXAM: 08/07/2020 COMPARISON: None HISTORY: right pneumo CT DLP: 446 mGycm. Automated Exposure Control for Dose Reduction was Utilized. TECHNIQUE: CT scan of the thorax is performed without IV contrast. FINDINGS: LUNGS: There is a moderate sized right pneumothorax. Area of subsegmental consolidation seen in the a nterior segment of the right upper lobe. Left lung is clear.. MEDIASTINUM: Lack of IV contrast is noted to limit evaluation for mediastinal and especially hilar ad enopathy. There are no definitive greater than 1 cm hilar or mediastinal lymph nodes. No cardiomega ly or pericardial effusion is seen. OTHER: No additional significant abnormality is seen. IMPRESSION: 1. Moderate-sized right pneumothorax with an area of subsegmental consolidation in the right anterior segment upper lobe. Cannot exclude subtle right to left midline deviation or tension component. Repo rt called to referring clinician. The patient was sent to the emergency room.
== END ==
LOC: RADCTMAIN 15:05
PROVIDERS: ATTEND Nurse Practitioner Adult Health
DX: J93.9 Pneumothorax, unspecified (principal)
CPT/HCPCS: 71250

== ENCOUNTER → 2020-11-18 | Outpatient (CLI) | payer OTHER ==
--- NOTE | 2020-11-18 09:39 | CT ---
EXAMINATION TYPE: CT abdomen pelvis wo con DATE OF EXAM: 11/18/2020 COMPARISON: None HISTORY: 45-year-old female R1 0.9, abdominal pain, Lower pelvic pain CT DLP: 285.6 mGycm. Automated exposure control for dose reduction was used. TECHNIQUE: Contiguous axial scanning of the abdomen and pelvis without IV contrast. Coronal and sagit leobardo reconstructions performed. FINDINGS: Heart normal size without pericardial effusion. Lung bases clear without pleural effusion. Noncontrast appearance of the liver, gallbladder, adrenal glands, kidneys, spleen, and pancreas show no gross abnormal. No dilated small bowel, free fluid, or free air. No mesenteric or retroperitoneal lymphadenopathy alberto ntified. There is moderate stool burden. Possible visualization of a short segment normal air-filled appendix, coronal image 29. No pericolic inflammatory change. Bladder partially distended. Uterus retroverted. Trace cul-de-sac free fluid probably physiologic. Th e ovaries are difficult to delineate from adjacent clustered bowel loops. No pelvic lymphadenopathy s een. No osseous destructive process. IMPRESSION: 1. Retroverted uterus. Trace cul-de-sac free fluid likely physiologic. Unable to delineate the ovari es from adjacent clustered bowel loops. 2. Moderate stool burden.
== END | disposition home or self-care (01) ==
LOC: RADCTMAIN 08:50
PROVIDERS: ATTEND Family Medicine
DX: N85.4 Malposition of uterus (principal)
CPT/HCPCS: 74176

== ENCOUNTER → 2021-09-04 | Outpatient (CLI) | payer OTHER ==
--- NOTE | 2021-09-10 09:27 | MM ---
Reason for exam: screening (asymptomatic). Last mammogram was performed 1 year and 6 months ago. History: Patient had first child at age 33. Taking other hormone. Physical Findings: A clinical breast exam by your physician is recommended on an annual basis and results should be correlated with mammographic findings. MG 3D Screening Mammo W/Cad Bilateral CC and MLO view(s) were taken. Prior study comparison: February 28, 2020, bilateral MG 3d screening mammo w/cad. May 12, 2018, bilateral MG screening mammo w CAD. The breast tissue is heterogeneously dense. This may lower the sensitivity of mammography. No significant changes when compared with prior studies. ASSESSMENT: Benign, BI-RAD 2 RECOMMENDATION: Routine screening mammogram of both breasts in 1 year.
== END | disposition home or self-care (01) ==
LOC: RADMAMWWP 08:10
PROVIDERS: ATTEND Family Medicine
DX: Z12.31 Encounter for screening mammogram for malignant neoplasm of breast (principal)
CPT/HCPCS: 77063; 77067

== ENCOUNTER → 2021-09-19 | Outpatient (CLI) | payer OTHER ==
--- NOTE | 2021-09-19 11:23 | US ---
EXAMINATION TYPE: US thyroid st tissue head/neck DATE OF EXAM: 09/19/2021 COMPARISON: NONE CLINICAL HISTORY: E04.1 THYROID NODULE. Patient states lump in medial left neck. No thyroid meds. GLAND SIZE: Right Lobe: 4.6 x 1.5 x 1.5 cm Overall Parenchyma: homogenous Left Lobe: 3.9 x 1.6 x 1.1 cm Overall Parenchyma: homogeneous Isthmus Thickness: 0.3 cm NODULES RIGHT: # of nodules measured on right: 0 LEFT: # of nodules measured on left: 0 ISTHMUS: # of nodules measured in the isthmus: 0 Bilateral neck scanned, no evidence of lymphadenopathy. Area of concern scanned at medial left neck. Prominent vessel visualized. Contralateral side seen. Homogeneous thyroid gland measures lower limits of normal in size. No discrete nodule. Area of concer n left lateral neck shows a prominent patent vessel towards the end of the exam with similar appearan ce noted on the right side on images saved. IMPRESSION: No suspicious mass or adenopathy.
== END | disposition home or self-care (01) ==
LOC: RADUSWWP 10:20
PROVIDERS: ATTEND Family Medicine
DX: E04.1 Nontoxic single thyroid nodule (principal)
CPT/HCPCS: 76536

== ENCOUNTER → 2022-12-04 | Outpatient (CLI) | payer OTHER ==
--- NOTE | 2022-12-07 09:19 | MM ---
Reason for Exam: Screening (asymptomatic). Last mammogram was performed 1 year(s) and 3 month(s) ago. Patient History: Menarche at age 10. First Full-Term at age 33. Late child-bearing (after 30). Premenopausal. Risk Values: Lucinda 5 year model risk: 0.9%. NCI Lifetime model risk: 9.9%. Prior Study Comparison: 05/12/2018 Bilateral Screening Mammogram, [facility]. 02/28/2020 Bilateral Screening Mammogram, [facility]. 09/04/2021 Bilateral Screening Mammogram, [facility]. Tissue Density: There are scattered fibroglandular densities. Findings: Analyzed By CAD. There is no suspicious group of microcalcifications or new suspicious mass in either breast. Overall Assessment: Negative, BI-RAD 1 Management: Screening Mammogram of both breasts in [address] [facility] will attempt to contact patient to return for supplemental views and ultrasound if indicated. Patient should continue monthly self-breast exams. A clinical breast exam by your physician is recommended on an annual basis. This exam should not preclude additional follow-up of suspicious palpable abnormalities. Note on Lucinda scores and lifetime risk: 1. A Lucinda score greater than 3% is considered moderate risk. If this is the case, consider specialist referral to assess eligibility for a risk reducing agent. 2. If overall lifetime risk for the development of breast cancer is 20% or higher, the patient may qualify for future screening with alternating mammogram and breast MRI. Electronically signed and approved by: Estiven Galloway DO
== END | disposition home or self-care (01) ==
LOC: RADMAMWWP 09:18
PROVIDERS: ATTEND Family Medicine
DX: Z12.31 Encounter for screening mammogram for malignant neoplasm of breast (principal)
CPT/HCPCS: 77063; 77067

== ENCOUNTER → 2023-09-10 | Outpatient (CLI) | payer OTHER ==
--- NOTE | 2023-09-10 14:17 | MR ---
EXAMINATION TYPE: MR knee LT wo con DATE OF EXAM: 09/10/2023 COMPARISON: Outside left knee x-ray August 23, 2023 HISTORY: Left knee pain and swelling x2 weeks TECHNIQUE: Multiplanar, multisequence images of the knee is performed without IV contrast. FINDINGS: MEDIAL MENISCUS: Subtle oblique increased signal posterior horn does not definitively extend to artic ular surface. LATERAL MENISCUS: Anterior and posterior horns are intact without tear. CRUCIATE LIGAMENTS: The anterior and posterior cruciate ligaments are intact and unremarkable. COLLATERAL LIGAMENTS: The medial collateral ligament and lateral collateral ligament complex are inta ct and unremarkable. EXTENSOR MECHANISM: Visualized quadriceps and patellar tendons are intact. EFFUSION: Small size suprapatellar joint effusion. POPLITEAL CYST: Moderate-sized leaking popliteal/pedersen cyst. TRICOMPARTMENT SPACES: Mild tricompartment joint space loss. No significant spurring. CARTILAGE: Tricompartmental articular cartilage is preserved. BONE MARROW SIGNAL: No focal abnormal marrow signal is appreciated. OTHER: No additional significant abnormality is appreciated. IMPRESSION: 1. Mild tricompartment joint degenerative changes. 2. Moderate-sized leaking popliteal cyst. 3. Intrasubstance tear posterior horn medial meniscus, no full-thickness meniscal tear. 4. Small size suprapatellar joint effusion.
== END | disposition home or self-care (01) ==
LOC: RADMRIMAIN 13:09
PROVIDERS: ATTEND Orthopaedic Surgery
DX: M17.12 Unilateral primary osteoarthritis, left knee (principal); M25.462 Effusion, left knee; M23.322 Other meniscus derangements, posterior horn of medial meniscus, left knee; M71.22 Synovial cyst of popliteal space [Baker], left knee

== ENCOUNTER → 2024-04-10 | Outpatient (CLI) | payer OTHER ==
--- NOTE | 2024-04-11 11:18 | MM ---
Reason for Exam: Screening (asymptomatic). Last mammogram was performed 1 year(s) and 4 month(s) ago. Patient History: Menarche at age 10. First Full-Term at age 33. Late child-bearing (after 30). Premenopausal. Last menstrual period: Risk Values: Lucinda 5 year model risk: 1.0%. NCI Lifetime model risk: 9.6%. Prior Study Comparison: 02/28/2020 Bilateral Screening Mammogram, [facility]. 09/04/2021 Bilateral Screening Mammogram, [facility]. 12/04/2022 Bilateral MG 3D screening mammo w/cad, [facility]. Tissue Density: The breasts are heterogeneously dense, which may obscure small masses. Findings: Analyzed By CAD. Right breast: There is no suspicious group of microcalcifications or new suspicious mass. Left breast: There is no suspicious group of microcalcifications or new suspicious mass. Overall Assessment: Negative, BI-RAD 1 Management: Screening Mammogram of both breasts in [address] [facility] will attempt to contact patient to return for supplemental views and ultrasound if indicated. Patient should continue monthly self-breast exams. A clinical breast exam by your physician is recommended on an annual basis. This exam should not preclude additional follow-up of suspicious palpable abnormalities. Note on Lucinda scores and lifetime risk: 1. A Lucinda score greater than 3% is considered moderate risk. If this is the case, consider specialist referral to assess eligibility for a risk reducing agent. 2. If overall lifetime risk for the development of breast cancer is 20% or higher, the patient may qualify for future screening with alternating mammogram and breast MRI. [facility], , 04/11/2024 11:14 AM. Electronically signed and approved by: Estiven Galloway DO
== END | disposition home or self-care (01) ==
LOC: RADMAMWWP 14:22
PROVIDERS: ATTEND Family Medicine
DX: Z12.31 Encounter for screening mammogram for malignant neoplasm of breast (principal); R92.333 Mammographic heterogeneous density, bilateral breasts
CPT/HCPCS: 77063; 77067